=== PATIENT | male | born 1970 | race Caucasian/White ===

== ENCOUNTER 2017-04-09 10:51 | Emergency (ER) | payer BC ==
[2017-04-09] MEDS ORDERED: BSS OPTH.SOL* BTL ONE (11:51)
[2017-04-09] MEDS ORDERED: Fluorescein Sodium TOPICAL* 1 MG TEST ONE ×2 (11:51→12:31)
[2017-04-09] MEDS ORDERED: Tetracaine 0.5% OPTH.SOL 4 ML* 1 DROP BTL ONE (11:51)
--- NOTE | 2017-04-09 11:55 | ED ---
Throat Pain/Nasal Congestion - HPI Summary HPI Summary: Patient presents to with CC of R eye irritation. He reports feeling a " behind the eye" pressure 8 days ago while at a hockey game. He reports his eye was pink and has progressively become more red over the past several days. He initially had a FB sensation and pulled "a dog hair out". He no longer has FB sensation since pulling out the hair, but reports "blurry" vision intermittently in this eye. He denies any known CHELSEA/trauma. He denies any eye pain, visual field loss/defect, discharge, or facial pain. For the headahes hes been taking excederin BID/TID PRN. He dnies photophobia, or history of migraines with or without aura. No f/c/s, n/v/d/c, chest pain, or shortness of breath reported. - History of Current Complaint Chief Complaint: UCEye Time Seen by Provider: 04/09/17 11:36 Hx Obtained From: Patient - Allergies/Home Medications Allergies/Adverse Reactions: Allergies Allergy/AdvReac Type Severity Reaction Status Date / Time No Known Allergies Allergy Verified 04/09/17 11:14 Home Medications: Home Medications NK [No Home Medications Reported] 04/09/17 [History Confirmed 04/09/17] PMH/Surg Hx/FS Hx/Imm Hx Previously Healthy: Yes Infectious Disease History: No Infectious Disease History: Denies: Traveled Outside the [place] in Last 30 Days - Family History Known Family History: Positive: Cardiac Disease - Social History Alcohol Use: None Substance Use Type: Reports: None Smoking Status (MU): Never Smoked Tobacco Review of Systems All Other Systems Reviewed And Are Negative: Yes Physical Exam Triage Information Reviewed: Yes Vital Signs On Initial Exam: Initial Vitals Temp Pulse Resp BP Pulse Ox 97.6 F 62 14 193/93 100 04/09/17 11:07 04/09/17 11:07 04/09/17 11:07 04/09/17 11:07 04/09/17 11:07 Vital Signs Reviewed: Yes Appearance: Positive: Well-Appearing, No Pain Distress, Well-Nourished Skin: Positive: Warm Eyes: Positive: EOMI, ALICIA, Conjunctiva Inflammed - Right eye - conjunctival erythema., Other: - No eye discharge noted. sp eye irrigation (R) - Flurocsene testing: no uptake. No FB visualized pre or post irrigation. ENT: Positive: Hearing grossly normal, TMs normal Neck: Positive: Supple, Nontender Respiratory/Lung Sounds: Positive: Clear to Auscultation, Breath Sounds Present Cardiovascular: Positive: Normal, RRR. Negative: Murmur Abdomen Description: Positive: Nontender Bowel Sounds: Positive: Present Musculoskeletal: Positive: Normal Neurological: Positive: Normal, Alert, Oriented to Person Place, Time Psychiatric: Positive: Normal AVPU Assessment: Alert Diagnostics - Vital Signs Vital Signs Temp Pulse Resp BP Pulse Ox 04/09/17 11:07 97.6 F 62 14 193/93 100 - Laboratory Lab Statement: Any lab studies that have been ordered have been reviewed, and results considered in the medical decision making process. - EKG EKG today: 04/09/17 Sinus bradycardia. No STEMI noted. Cardiac Rate: Bradycardia EKG Rhythm: Sinus Bradycardia ST Segment: Normal Ectopy: None EENT Course/Dx - Course Course Of Treatment: s/p eye irrigation with NS 20cc. Flouriscene testing: No uptake. BP recheck 168/104 manual cuff. EKG + clonidine 0.1 x1. Repeat BP 164 /96 machine. Assessment/Plan: Sub Conj hemorrhage - Right eye - Diagnoses Provider Diagnoses: Subconjunctival hemorrhage of right eye Discharge - Discharge Plan Condition: Stable Disposition: HOME Referrals: [facility] [place] [facility] [Outside] - As Soon As Possible (Please establish care with a new primary care doctor as soon as possible.) Additional Instructions: You may apply the over the counter eye drops for comfort, as needed. The redness in your eye should improve over the next several days to weeks. Please return or proceed to the ED if you develop. You had an elevated blood pressure today - but this may be chronic as you've suggested having a history of elevated blood pressures several years ago. Your blood pressure did improve with the medicaiton we gave you here, but continues to be elevated. If your blood pressure remains elevated or goes higher at home, or you develop chest pain, jaw pain, slurred speech, visual loss, upper arm/ extremity weakness or numbness, cold sweats, or chest pain on exertion please report to the ED immediately by ambulance to be evaluated. I've placed a consult for you to establish care with a new physician in the local area. Please establish care as soon as possible.
[2017-04-09] MEDS ORDERED: cloNIDine TAB* 0.1 MG PO ONE (12:51)
[2017-04-09] MEDS ORDERED: cloNIDine TAB* 0.1 MG ONE (12:54)
[2017-04-09 13:21] VITALS: BP 164/96
== END 2017-04-09 13:42 | disposition home or self-care (01) ==
LOC: UCCORT 10:51
DX: H11.31 Conjunctival hemorrhage, right eye (principal); R00.1 Bradycardia, unspecified
CPT/HCPCS: 93005; 99203; A9270-GY; G0463